=== PATIENT | female | born 1960 | race Caucasian/White ===

== ENCOUNTER 2017-09-27 10:49 | Inpatient (IN) | payer OTHER ==
[2017-09-27] MEDS: OXYCODONE/ACETAMINOPHEN (5/325) TAB PO (12:23)
[2017-09-27 12:49] LABS: ADD MAN DIFF? NO
[2017-09-27 12:52] LABS: BASOPHIL # 0.1 10^3/ul (0.0-0.1); BASOPHILS % 0.8 % (0.0-2.0); EOSINOPHILS # 0.2 10^3/ul (0.0-0.5); EOSINOPHILS % 1.8 % (0.0-7.0); HEMATOCRIT 30.5 % (37.0-47.0); LYMPHOCYTES # 2.6 10^3/ul (0.8-2.9); LYMPHOCYTES % 21.8 % (15.0-51.0); MEAN CORPUSCULAR HEMOGLOBIN 29.5 pg (29.0-33.0); MEAN CORPUSCULAR HGB CONC 32.8 g/dl (32.0-37.0); MEAN PLATELET VOLUME 10.1 fl (7.4-10.4); MONOCYTES % 8.3 % (0.0-11.0); PLATELET COUNT 370 10^3/UL (140-415); RED BLOOD COUNT 3.39 10^6/ul (4.20-5.40); RED CELL DISTRIBUTION WIDTH 14.7 % (11.5-14.5)
[2017-09-27 12:52] LABS: WHITE BLOOD COUNT 11.9 10^3/ul (4.8-10.8)
[2017-09-27 12:58] LABS: ADD UMIC YES; UR ASCORBIC ACID NEGATIVE (NEGATIVE); UR BILIRUBIN (Dip) NEGATIVE (NEGATIVE); UR BLOOD (Dip) 1+ mg/dL (NEGATIVE); UR CLARITY CLEAR (CLEAR); UR COLOR STRAW (YELLOW); UR GLUCOSE (Dip) 1+ mg/dL (NEGATIVE); UR KETONES (Dip) NEGATIVE (NEGATIVE); UR LEUKOCYTE ESTERASE (Dip) NEGATIVE Leu/ul (NEGATIVE); UR NITRITE (Dip) NEGATIVE (NEGATIVE); UR RBC 1 /HPF (0-5); UR TOTAL PROTEIN (Dip) NEGATIVE (NEGATIVE); UR UROBILINOGEN (Dip) NEGATIVE (NEGATIVE); UR WBC 0 /HPF (0-5)
[2017-09-27 13:10] LABS: ALANINE AMINOTRANSFERASE 33 IU/L (13-69); ALBUMIN 3.8 g/dl (3.3-4.9); ALBUMIN/GLOBULIN RATIO 1.22; ALKALINE PHOSPHATASE 80 IU/L (42-121); ANION GAP 18 (8-16); ASPARTATE AMINO TRANSFERASE 32 IU/L (15-46); BILIRUBIN,INDIRECT 0.2 mg/dl (0-1.1); BILIRUBIN,TOTAL 0.2 mg/dl (0.2-1.3); BLOOD UREA NITROGEN 17 mg/dl (7-20); CALCIUM 9.5 mg/dl (8.4-10.2); CARBON DIOXIDE 27 mmol/L (21-31); CHLORIDE 107 mmol/L (97-110); GLUCOSE 173 mg/dl (70-220); LIPASE 81 U/L (23-300); POTASSIUM 5.2 mmol/L (3.5-5.1); SODIUM 147 mmol/L (135-144); TOTAL PROTEIN 6.9 g/dl (6.1-8.1)
[2017-09-27] MEDS ORDERED: DOCUSATE SODIUM 100 MG CAP PO (14:00)
[2017-09-27] MEDS ORDERED: NACL 0.9% 3 ML SYG IV (14:00)
[2017-09-27] MEDS ORDERED: ONDANSETRON 4 MG INJ IV (14:00)
[2017-09-27] MEDS ORDERED: GLUCOSE GEL 15 GRAM TUBE PO ×2 (14:30)
[2017-09-27] MEDS ORDERED: GLUCOSE GEL 15 GRAM TUBE BUCCAL (14:30)
[2017-09-27] MEDS ORDERED: DEXTROSE 50% 50 ML SYRINGE IV ×2 (14:30)
[2017-09-27] MEDS ORDERED: GLUCAGON 1 MG INJ IM (14:30)
[2017-09-27 15:07] LABS: CREATINE KINASE 223 IU/L (23-200)
[2017-09-27 15:20] LABS: CK INDEX 1.5; CK-MB 3.35 ng/ml (0.0-2.4); TROPONIN-I < 0.012 ng/ml (0.00-0.12)
[2017-09-27] MEDS: SOD CHLORIDE 0.45% 1,000 ML IV (17:12)
[2017-09-27] MEDS: ENOXAPARIN 40 MG/0.4 ML SYG SC (17:12)
[2017-09-27] MEDS: FAMOTIDINE 20 MG TAB PO ×2 (17:12→20:28)
[2017-09-27] MEDS: INSULIN ASPART [NOVOLOG] 3 ML PEN SC ×2 (18:00→20:29)
[2017-09-27] MEDS: hydrALAzine 20 MG INJ IV (18:50)
[2017-09-27 20:21] LABS: CREATINE KINASE 200 IU/L (23-200)
[2017-09-27] MEDS: ACETAMINOPHEN 325 MG TAB PO (20:28)
[2017-09-27] MEDS: ATORVASTATIN 80 MG TAB PO (20:28)
[2017-09-27 20:34] LABS: CK INDEX 1.3; CK-MB 2.69 ng/ml (0.0-2.4)
[2017-09-27 20:39] LABS: TROPONIN-I < 0.012 ng/ml (0.00-0.12)
[2017-09-28] MEDS: ACCU-CHEK XX (01:08)
[2017-09-28] MEDS: SOD CHLORIDE 0.45% 1,000 ML IV ×2 (03:10→07:56)
[2017-09-28] MEDS: ACETAMINOPHEN 325 MG TAB PO (04:16)
[2017-09-28] MEDS: INSULIN ASPART [NOVOLOG] 3 ML PEN SC ×3 (08:00→17:29)
[2017-09-28 08:16] LABS: ADD MAN DIFF? NO
[2017-09-28 08:36] LABS: HEMOGLOBIN A1C 6.5 % (0-5.9)
[2017-09-28 08:46] LABS: ALANINE AMINOTRANSFERASE 29 IU/L (13-69); ALBUMIN 4.1 g/dl (3.3-4.9); ALBUMIN/GLOBULIN RATIO 1.28; ALKALINE PHOSPHATASE 66 IU/L (42-121); ANION GAP 20 (8-16); ASPARTATE AMINO TRANSFERASE 38 IU/L (15-46); BILIRUBIN,INDIRECT 0.3 mg/dl (0-1.1); BILIRUBIN,TOTAL 0.3 mg/dl (0.2-1.3); BLOOD UREA NITROGEN 16 mg/dl (7-20); CALCIUM 9.3 mg/dl (8.4-10.2); CARBON DIOXIDE 24 mmol/L (21-31); CHLORIDE 107 mmol/L (97-110); CHOL/HDL RATIO 5.3 RATIO; CHOLESTEROL 154 mg/dl (100-200); CREATININE 0.64 mg/dl (0.44-1.00); GLUCOSE 115 mg/dl (70-220); HDL CHOLESTEROL 29 mg/dl (37-92); LDL CHOLESTEROL,CALCULATED 103 mg/dl; MAGNESIUM 1.3 mg/dl (1.7-2.5); POTASSIUM 4.9 mmol/L (3.5-5.1); SODIUM 146 mmol/L (135-144); TOTAL PROTEIN 7.3 g/dl (6.1-8.1); TRIGLYCERIDES 108 mg/dl (0-149)
[2017-09-28 08:59] LABS: FREE T4 (FREE THYROXINE) 0.82 ng/dl (0.64-1.79)
[2017-09-28] MEDS: FAMOTIDINE 20 MG TAB PO (09:08)
[2017-09-28] MEDS: LEVOTHYROXINE 75 MCG TAB PO (09:08)
[2017-09-28] MEDS: ASPIRIN 81 MG TAB PO (09:08)
[2017-09-28] MEDS: ENOXAPARIN 40 MG/0.4 ML SYG SC (09:10)
[2017-09-28 09:24] LABS: BASOPHIL # 0.1 10^3/ul (0.0-0.1); BASOPHILS % 1.4 % (0.0-2.0); EOSINOPHILS # 0.4 10^3/ul (0.0-0.5); EOSINOPHILS % 3.8 % (0.0-7.0); HEMATOCRIT 32.4 % (37.0-47.0); HEMOGLOBIN 10.6 g/dl (12.0-16.0); LYMPHOCYTES # 2.8 10^3/ul (0.8-2.9); LYMPHOCYTES % 29.1 % (15.0-51.0); MEAN CORPUSCULAR HEMOGLOBIN 29.8 pg (29.0-33.0); MEAN CORPUSCULAR HGB CONC 32.7 g/dl (32.0-37.0); MONOCYTE # 0.9 10^3/ul (0.3-0.9); MONOCYTES % 9.4 % (0.0-11.0); NEUTROPHIL # 5.4 10^3/ul (1.6-7.5); NEUTROPHILS % 55.9 % (39.0-77.0); PLATELET COUNT 389 10^3/UL (140-415); RED BLOOD COUNT 3.56 10^6/ul (4.20-5.40); RED CELL DISTRIBUTION WIDTH 14.6 % (11.5-14.5)
[2017-09-28 09:24] LABS: WHITE BLOOD COUNT 9.6 10^3/ul (4.8-10.8)
[2017-09-28] MEDS: MAGNESIUM SULFATE 4 GM/100 ML 100 ML IVPB (12:39)
[2017-09-28] MEDS: AMLODIPINE 2.5 MG TAB PO (13:45)
[2017-09-28] MEDS: MAGNESIUM OXIDE 400 MG TAB PO (15:17)
== END 2017-09-28 18:35 | disposition home or self-care (01) | DRG 638 ==
LOC: MS4 19:01 → E/R 10:49 → MS4 11:54
DX: E11.649 Type 2 diabetes mellitus with hypoglycemia without coma (principal); E87.0 Hyperosmolality and hypernatremia; E87.5 Hyperkalemia; D72.829 Elevated white blood cell count, unspecified; D64.9 Anemia, unspecified; I10 Essential (primary) hypertension; E78.5 Hyperlipidemia, unspecified; E03.9 Hypothyroidism, unspecified; G45.9 Transient cerebral ischemic attack, unspecified; E86.0 Dehydration; R47.81 Slurred speech; R29.810 Facial weakness; R20.0 Anesthesia of skin
CPT/HCPCS: 36415; 70544; 70549; 70553; 80053; 80061; 81001; 82550; 82553; 82962; 83036; 83690; 83735; 84439; 84443; 84484; 85025; 93005; 93306; 93880; 96372; 96374; 99285-25